=== PATIENT | female | born 1955 | race American Indian/Alaskan Native ===

== ENCOUNTER 2017-01-19 12:12 | Day surgery (SDC) | payer BC ==
[~2017-01-19 12:12] MED LIST: IOPIDINE OD ONE; IOPIDINE ONE; MYDRIACYL OD ONE; MYDRIACYL ONE; NEOFRIN OD ONE; NEOFRIN ONE
[2017-01-19 12:42] VITALS: BP 140/90
[2017-01-19] MEDS ORDERED: NEOFRIN OD ONE (12:48)
[2017-01-19] MEDS ORDERED: IOPIDINE OD ONE (12:48)
[2017-01-19] MEDS ORDERED: MYDRIACYL OD ONE (12:48)
== END 2017-01-19 12:13 | disposition home or self-care (01) ==
LOC: OR 12:12
PROVIDERS: ATTEND Specialist
DX: H26.491 Other secondary cataract, right eye (principal)